=== PATIENT | female | born 1945 | race Caucasian/White ===

== ENCOUNTER 2018-10-16 16:09 | Emergency (ER) | payer MEDICARE ==
[2018-10-16] MEDS ORDERED: Sodium Chloride 0.9% 1,000 ML IV ONE (16:11)
--- NOTE | 2018-10-16 16:11 | EDM.PDOC ---
ED HPI GENERAL MEDICAL PROBLEM - General Stated Complaint: DIZZY Time Seen by Provider: 10/16/18 16:10 Source of Information: Reports: Patient History Limitations: Reports: No Limitations - History of Present Illness INITIAL COMMENTS - FREE TEXT/NARRATIVE: HISTORY AND PHYSICAL: History of present illness: Patient is a 73-year-old female who presents to the emergency room with multiple complaints. She states that she lost her ex- on 09/21/18, unexpectedly. Since learning of his she has had increased stress, anxiety , decreased appetite and generally feeling unwell. Patient is very tearful when talking about his, stating he was my best friend". Over the past 2 days she has felt "shaky, diarrhea, nausea and vomiting. She reports she is overall healthy and does not take any prescribed medications for any chronic health conditions. She is brought to the emergency room today by her fianc who does not share any additional information. She is a daily drinker, "several per day". She reports she did take some Xanax and Zofran earlier this afternoon. Patient denies any fever, chills, headache, change in vision, syncope or near syncope. Denies any chest pain, back pain, shortness of breath or cough. Denies any abdominal pain, constipation or dysuria. Has not noted any blood in urine or stool. Patient has been eating and drinking appropriately. Review of systems: As per history of present illness and below otherwise all systems reviewed and negative. Past medical history: As per history of present illness and as reviewed below otherwise noncontributory. Surgical history: As per history of present illness and as reviewed below otherwise noncontributory. Social history: See social history for further information Family history: As per history of present illness and as reviewed below otherwise noncontributory. Physical exam: General: Well-developed and well-nourished 73-year-old female. Alert and oriented. Becomes very tearful when talking about her ex-. Nontoxic appearing and in no acute distress. HEENT: Atraumatic, normocephalic, pupils equal and reactive bilaterally, negative for conjunctival pallor or scleral icterus, mucous membranes moist, TMs normal bilaterally, throat clear, neck supple, nontender, trachea midline. No drooling or trismus noted. No meningeal signs. No hot potato voice noted. Lungs: Clear to auscultation, breath sounds equal bilaterally, chest nontender. Heart: S1S2, regular rate and rhythm without overt murmur Abdomen: Soft, nondistended, nontender. Negative for masses or hepatosplenomegaly. Negative for costovertebral tenderness. Pelvis: Stable nontender. Genitourinary: Deferred. Rectal: Deferred. Skin: Intact, warm, dry. No lesions or rashes noted. Nonjaundiced. Extremities: Atraumatic, moves all extremities per self without difficulty or deficits, negative for cords or calf pain. Neurovascular unremarkable. Neuro: Awake, alert, oriented. Cranial nerves II through XII unremarkable. Cerebellum unremarkable. Motor and sensory unremarkable throughout. Exam nonfocal. Notes: Diagnostics were shared with the patient. She denies any abdominal pain, nausea , vomiting or diarrhea while here. She states she does feel improved. I did offer her admission which she declines. She states she is currently on the road traveling back home to [place] he would like to be discharged to home. We discussed signs and symptoms that would prompt her to return to the emergency room. She states she will follow-up with her primary care provider next week. Supportive care measures were reviewed and discussed. Voices understanding and is agreeable to plan of care. Denies any further questions or concerns at this time. Diagnostics: CBC, CMP, UA, Troponin, CXR, EKG, Orthostatic Vital Signs Therapeutics: IV fluids Prescription: K-Dur Impression: Elevated transaminases Hypokalemia Anxiety Fatty liver, alcoholic Plan: 1. Stop your alcohol use. BRAT diet (bananas, rice, applesauce, toast) or bland diet over the next 24-72 hours. Advance diet at tolerated 2. Small frequent sips of fluids to prevent dehydration. 3. Try to decrease stress. 4. Please follow-up with your primary care provider to have your labs rechecked as we discussed. Return to the ED as needed and as discussed. Definitive disposition and diagnosis as appropriate pending reevaluation and review of above. - Related Data Allergies Allergy/AdvReac Type Severity Reaction Status Date / Time Penicillins Allergy Other Verified 10/16/18 16:42 Home Meds: Home Meds ALPRAZolam [Xanax] 0.5 mg PO PRN 10/16/18 [History] Ondansetron [Zofran] 4 mg PO PRN 10/16/18 [History] Zaleplon 10 mg PO BEDTIME 10/16/18 [History] ED ROS GENERAL - Review of Systems Review Of Systems: ROS reveals no pertinent complaints other than HPI. ED EXAM, GENERAL - Physical Exam Exam: See Below (See dictation) Course - Vital Signs Last Recorded V/S: Last Vital Signs Temp 97.6 F 10/16/18 16:33 Pulse 87 10/16/18 18:53 Resp 12 10/16/18 18:53 BP 175/95 H 10/16/18 18:53 Pulse Ox 98 10/16/18 18:53 Orthostatic Blood Pressure [ 120/75 Standing] Orthostatic Blood Pressure [ 121/80 Sitting] Orthostatic Blood Pressure [ 133/84 Supine] - Orders/Labs/Meds Orders: Active Orders 24 hr Category Date Time Status EKG Documentation Completion [RC] STAT Care 10/16/18 16:11 Active Orthostatic Vital Signs [RC] ASDIRECTED Care 10/16/18 16:11 Active CULTURE STOOL + CAMPY+SHIGATOX [RM] Stat Lab 10/16/18 16:55 Ordered Clostridium Difficile [CDIFF TOX A+B] [OP] Stat Lab 10/16/18 16:55 Ordered OVA & PARASITES BY IMMUNOASSAY [MREF] Stat Lab 10/16/18 16:55 Ordered Labs: Laboratory Tests 10/16/18 10/16/18 10/16/18 Range/Units 16:25 16:25 16:25 WBC 6.26 (4.0-11.0) K/uL RBC 3.89 L (4.30-5.90) M/uL Hgb 15.5 (12.0-16.0) g/dL Hct 43.1 (36.0-46.0) % MCV 110.8 H (80.0-98.0) fL MCH 39.8 H (27.0-32.0) pg MCHC 36.0 (31.0-37.0) g/dL RDW Std Deviation 57.2 (28.0-62.0) fl RDW Coeff of Radha 14 (11.0-15.0) % Plt Count 160 (150-400) K/uL MPV 9.40 (7.40-12.00) fL Neut % (Auto) 77.2 (48.0-80.0) % Lymph % (Auto) 10.9 L (16.0-40.0) % Barren % (Auto) 11.3 (0.0-15.0) % Eos % (Auto) 0.3 (0.0-7.0) % Baso % (Auto) 0.3 (0.0-1.5) % Neut # (Auto) 4.8 (1.4-5.7) K/uL Lymph # (Auto) 0.7 (0.6-2.4) K/uL Barren # (Auto) 0.7 (0.0-0.8) K/uL Eos # (Auto) 0.0 (0.0-0.7) K/uL Baso # (Auto) 0.0 (0.0-0.1) K/uL Nucleated RBC % 0.0 /100WBC Nucleated RBCs # 0 K/uL Sodium 134 L (136-145) mmol/L Potassium 3.1 L (3.5-5.1) mmol/L Chloride 91 L (98-107) mmol/L Carbon Dioxide 23.9 (21.0-32.0) mmol/L BUN 6 L (7.0-18.0) mg/dL Creatinine 0.7 (0.6-1.0) mg/dL Est Cr Clr Drug Dosing TNP Estimated GFR (MDRD) > 60.0 ml/min Glucose 132 H (74-106) mg/dL Calcium 9.6 (8.5-10.1) mg/dL Total Bilirubin 3.0 H (0.2-1.0) mg/dL AST 216 H (15-37) IU/L ALT 86 H (14-63) IU/L Alkaline Phosphatase 115 (46-116) U/L Troponin I < 0.050 (0.000-0.056) ng/mL Total Protein 7.4 (6.4-8.2) g/dL Albumin 3.9 (3.4-5.0) g/dL Globulin 3.5 (2.6-4.0) g/dL Albumin/Globulin Ratio 1.1 (0.9-1.6) Lipase 214 (73-393) U/L Urine Color Urine Appearance Urine pH (5.0-8.0) Ur Specific [place] (1.001-1.035) Urine Protein (NEGATIVE) mg/dL Urine Glucose (UA) (NEGATIVE) mg/dL Urine Ketones (NEGATIVE) mg/dL Urine Occult Blood (NEGATIVE) Urine Nitrite (NEGATIVE) Urine Bilirubin (NEGATIVE) Urine Urobilinogen (<2.0) EU/dL Ur Leukocyte Esterase (NEGATIVE) 10/16/18 Range/Units 17:25 WBC (4.0-11.0) K/uL RBC (4.30-5.90) M/uL Hgb (12.0-16.0) g/dL Hct (36.0-46.0) % MCV (80.0-98.0) fL MCH (27.0-32.0) pg MCHC (31.0-37.0) g/dL RDW Std Deviation (28.0-62.0) fl RDW Coeff of Radha (11.0-15.0) % Plt Count (150-400) K/uL MPV (7.40-12.00) fL Neut % (Auto) (48.0-80.0) % Lymph % (Auto) (16.0-40.0) % Barren % (Auto) (0.0-15.0) % Eos % (Auto) (0.0-7.0) % Baso % (Auto) (0.0-1.5) % Neut # (Auto) (1.4-5.7) K/uL Lymph # (Auto) (0.6-2.4) K/uL Barren # (Auto) (0.0-0.8) K/uL Eos # (Auto) (0.0-0.7) K/uL Baso # (Auto) (0.0-0.1) K/uL Nucleated RBC % /100WBC Nucleated RBCs # K/uL Sodium (136-145) mmol/L Potassium (3.5-5.1) mmol/L Chloride (98-107) mmol/L Carbon Dioxide (21.0-32.0) mmol/L BUN (7.0-18.0) mg/dL Creatinine (0.6-1.0) mg/dL Est Cr Clr Drug Dosing Estimated GFR (MDRD) ml/min Glucose (74-106) mg/dL Calcium (8.5-10.1) mg/dL Total Bilirubin (0.2-1.0) mg/dL AST (15-37) IU/L ALT (14-63) IU/L Alkaline Phosphatase (46-116) U/L Troponin I (0.000-0.056) ng/mL Total Protein (6.4-8.2) g/dL Albumin (3.4-5.0) g/dL Globulin (2.6-4.0) g/dL Albumin/Globulin Ratio (0.9-1.6) Lipase (73-393) U/L Urine Color YELLOW Urine Appearance CLEAR Urine pH 6.5 (5.0-8.0) Ur Specific [place] <= 1.005 (1.001-1.035) Urine Protein NEGATIVE (NEGATIVE) mg/dL Urine Glucose (UA) NEGATIVE (NEGATIVE) mg/dL Urine Ketones 15 H (NEGATIVE) mg/dL Urine Occult Blood NEGATIVE (NEGATIVE) Urine Nitrite NEGATIVE (NEGATIVE) Urine Bilirubin NEGATIVE (NEGATIVE) Urine Urobilinogen 1.0 (<2.0) EU/dL Ur Leukocyte Esterase NEGATIVE (NEGATIVE) Meds: Medications Discontinued Medications Generic Name Dose Route Start Last Admin Trade Name Freq PRN Reason Stop Dose Admin Sodium Chloride 1,000 mls @ 999 mls/hr 10/16/18 16:11 10/16/18 16:31 Normal Saline IV 10/16/18 17:11 999 mls/hr STAT ONE Administration Iopamidol 80 ml 10/16/18 18:55 10/16/18 18:56 Isovue Multipack-370 (76%) IVPUSH 10/16/18 18:56 80 ml ONETIME ONE Administration Lorazepam 0.5 mg 10/16/18 16:49 10/16/18 16:55 Ativan IVPUSH 10/16/18 16:50 Not Given ONETIME ONE Ondansetron HCl 4 mg 10/16/18 16:24 10/16/18 16:51 Zofran IVPUSH 10/16/18 16:25 4 mg ONETIME ONE Administration Ondansetron HCl 4 mg 10/16/18 16:50 10/16/18 16:51 Zofran IVPUSH 10/16/18 16:51 Not Given ONETIME ONE Potassium Chloride 20 meq 10/16/18 17:42 10/16/18 18:04 Klor-Con M20 PO 10/16/18 17:43 20 meq ONETIME ONE Administration Departure - Departure Time of Disposition: 19:35 Disposition: Home, Self-Care 01 Clinical Impression: Elevated transaminase level, Fatty liver, alcoholic, Hypokalemia, Anxiety - Discharge Information Instructions: Alcoholic Liver Disease, [id number], Food Choices to Help Relieve Diarrhea, Adult Referrals: PCP,None [Primary Care Provider] - Forms: ED Department Discharge Additional Instructions: The following information is given to patients seen in the emergency department who are being discharged to home. This information is to outline your options for follow-up care. We provide all patients seen in our emergency department with a follow-up referral. The need for follow-up, as well as the timing and circumstances, are variable depending upon the specifics of your emergency department visit. If you don't have a primary care physician on staff, we will provide you with a referral. We always advise you to contact your personal physician following an emergency department visit to inform them of the circumstance of the visit and for follow-up with them and/or the need for any referrals to a consulting specialist. The emergency department will also refer you to a specialist when appropriate. This referral assures that you have the opportunity for follow-up care with a specialist. All of these measure are taken in an effort to provide you with optimal care, which includes your follow-up. Under all circumstances we always encourage you to contact your private physician who remains a resource for coordinating your care. When calling for follow-up care, please make the office aware that this follow-up is from your recent emergency room visit. If for any reason you are refused follow-up, please contact the [facility] at and asked to speak to the emergency department charge nurse. [facility] [address] [place] [address] [id number] [address] [id number] 1. Stop your alcohol use. BRAT diet (bananas, rice, applesauce, toast) or bland diet over the next 24-72 hours. Advance diet at tolerated 2. Small frequent sips of fluids to prevent dehydration. 3. Try to decrease stress. 4. Please follow-up with your primary care provider to have your labs rechecked/ fatty liver as we discussed. Return to the ED as needed and as discussed. - My Orders Last 24 Hours: My Active Orders 10/16/18 16:11 EKG Documentation Completion [RC] STAT Orthostatic Vital Signs [RC] ASDIRECTED 10/16/18 16:55 CULTURE STOOL + CAMPY+SHIGATOX [RM] Stat Clostridium Difficile [CDIFF TOX A+B] [OP] Stat OVA & PARASITES BY IMMUNOASSAY [MREF] Stat - Assessment/Plan Last 24 Hours: My Active Orders 10/16/18 16:11 EKG Documentation Completion [RC] STAT Orthostatic Vital Signs [RC] ASDIRECTED 10/16/18 16:55 CULTURE STOOL + CAMPY+SHIGATOX [RM] Stat Clostridium Difficile [CDIFF TOX A+B] [OP] Stat OVA & PARASITES BY IMMUNOASSAY [MREF] Stat
[2018-10-16] MEDS ORDERED: Ondansetron 4 MG/2 ML SDV IVPUSH ONE ×2 (16:24→16:50)
[2018-10-16] MEDS ORDERED: LORazepam 2 MG/ML SDV IVPUSH ONE (16:49)
[2018-10-16 16:59] LABS: CHLORIDE,CL 91 mmol/L (98-107); SODIUM,NA 134 mmol/L (136-145)
--- NOTE | 2018-10-16 17:11 | CR ---
Indication: Dizziness. Diarrhea. Confusion. Technique: A single AP portable view of the chest was obtained. Comparison: None Findings: The heart is normal in size. The lungs are clear. No infiltrate, pleural effusion, or pneumothorax is identified. Impression: No acute cardiopulmonary process. Dictated by Arely Conley MD @ Oct 16 2018 5:10PM Signed by Dr. Arely Conley @ Oct 16 2018 5:11PM
[2018-10-16] MEDS ORDERED: Potassium Chloride 20 MEQ Tab.ER PO ONE (17:42)
[2018-10-16] MEDS ORDERED: Iopamidol 755 MG/ML 500 ML Multipack Bottle IVPUSH ONE (18:55)
--- NOTE | 2018-10-16 19:25 | CT ---
INDICATION: Elevated LFTs, diarrhea TECHNIQUE: CT abdomen and pelvis acquired with IV contrast. 80 cc Isovue 370 COMPARISON: None FINDINGS: Lower chest: Small hiatal hernia. Liver: Hepatic steatosis. Spleen: Unremarkable. Pancreas: Unremarkable. Gallbladder and bile ducts: Mildly distended gallbladder. Dilated common bile duct is 9 millimeters. No evidence of for CBD calculi. Kidneys: Unremarkable. Adrenal glands: 1.5 centimeter left adrenal nodule with Hounsfield units of 60. GI tract: Unremarkable. Appendix is normal. Vascular structures: Unremarkable. Lymph nodes: Unremarkable. Miscellaneous: Unremarkable. No free air or significant free fluid. Pelvic Organs: Unremarkable. Bones: Severe superior endplate compression deformity L4 vertebral body. Degenerative changes throughout the lumbar spine. IMPRESSION: Hepatic steatosis. Dilated common bile duct up to 9 millimeters. No evidence for CBD calculus. Mildly distended gallbladder. Hiatal hernia. 5 centimeter left adrenal nodule. Dictated by Nick Santos MD @ 10/16/2018 7:23:43 PM Please note that all CT scans at this facility use dose modulation, iterative reconstruction, and/or weight-based dosing when appropriate to reduce radiation dose to as low as reasonably achievable. Dictated by: Nick Santos MD @ 10/16/2018 19:23:51 (Electronically Signed)
== END 2018-10-16 20:00 | disposition home or self-care (01) ==
LOC: MW.ED 16:09
DX: K70.0 Alcoholic fatty liver (principal); E87.6 Hypokalemia; R74.0 Nonspecific elevation of levels of transaminase and lactic acid dehydrogenase [LDH]; F41.9 Anxiety disorder, unspecified
CPT/HCPCS: 36415; 71045; 74177; 80053; 81003; 83690; 84484; 85025; 93005; 96361; 96374; 99284; A9270; J2405; J7040; Q9967